=== PATIENT | female | born 1985 | race Caucasian/White ===

== ENCOUNTER 2021-11-22 19:17 | Observation (INO) ==
[2021-11-22 20:20] LABS: Bilirubin,Urine Negative (Negative); Blood,Urine Negative (Negative); Clarity,Urine Clear (Clear); Glucose,Urine (UA) >=1000 mg/dL (Normal); Ketones,Urine Negative (Negative); Leukocyte Esterase,Urine Negative (Negative); Nitrite,Urine Negative (Negative); PH,Urine 6.5 pH Units (5.0-8.0); Protein,Urine Negative (Neg-Trace); Specific Gravity,Urine 1.015 (1.010-1.025); Urobilinogen,Urine Normal (Normal)
[2021-11-22 20:22] LABS: Color,Urine Colorless (Yellow)
[2021-11-22 20:28] LABS: RBC,Urine 0-3 per hpf (0-3); WBC,Urine 0-3 per hpf (0-3)
[2021-11-22 20:29] LABS: Squamous Epithelial Cell,Urine Few per hpf (None-Few)
[2021-11-22 20:30] LABS: VBG HCO3 23 mEq/L (21-27); VBG PCO2 39 mmHg (41-51); VBG PH 7.37 pH Units (7.32-7.42); VBG PO2 68 mmHg (25-50)
[2021-11-22] MEDS ORDERED: Insulin Regular, Human 100 UNIT/ML SUBQ ONE (20:52)
[2021-11-22] MEDS ORDERED: 0.9 % Sodium Chloride 1,000 ML IVC ONE (20:52)
[2021-11-22 20:53] LABS: Alanine Aminotransferase 203 Units/L (7-52); Albumin 3.4 g/dL (3.5-5.7); Albumin/Globulin Ratio 1.1 (1.1-2.2); Alkaline Phosphatase 266 Units/L (34-104); Aspartate Amino Transferase 95 Units/L (13-39); BUN/Creatinine Ratio 14 (6-26); Bilirubin,Total 0.3 mg/dL (0.3-1.0); Blood Urea Nitrogen 14 mg/dL (6-20); Calcium 8.5 mg/dL (8.6-10.3); Carbon Dioxide 22 mEq/L (23-29); Chloride 92 mEq/L (98-107); Globulin 3.1 g/dL (2.4-3.5); Potassium 4.3 mEq/L (3.5-5.1); Sodium 124 mEq/L (136-145); Total Protein 6.5 g/dL (6.4-8.9); eGFR For African Americans > 60 (> 60); eGFR For Non-African Americans > 60 (> 60)
[2021-11-22 20:57] LABS: Glucose 858 mg/dL (70-105); Osmolality,Calculated 301 (280-300)
[2021-11-22 21:15] LABS: Basophils % 0.2 %; Hematocrit 39.4 % (35.3-44.9); Hemoglobin 12.5 g/dL (11.5-15.4); Immature Granulocytes % 0.7 % (0-4); Lymphocytes # 5.1 K/mcL (0.6-4.6); Mean Corpuscular HGB Conc 31.7 g/dL (31.6-35.5); Mean Corpuscular Hemoglobin 28.6 pg (28.0-33.3); Mean Corpuscular Volume 90.2 fL (83.0-100.0); Mean Platelet Volume 11.1 fL (9.4-12.4); Monocytes # 1.4 K/mcL (0.0-1.3); Monocytes % 6.6 %; Neutrophils # 14.5 K/mcL (1.6-8.9); Platelet Count 172 K/mcL (140-400); Red Blood Count 4.37 M/mcL (3.82-4.97); Red Cell Distribution Width 13.8 % (11.5-14.5); Segmented Neutrophils % 68.5 %
[2021-11-22 21:16] LABS: White Blood Count 21.2 K/mcL (4.3-11.1)
[2021-11-22] MEDS ORDERED: Ondansetron 4 MG/2 ML VIAL IVP ONE (21:26)
[2021-11-22] MEDS ORDERED: Insulin Human Regular 10 UNIT in 0.9 % Sodium Chloride 10 ML IV ONE (21:30)
[2021-11-22] MEDS ORDERED: Piperacillin/Tazobactam 3.375 GM in 0.9 % Sodium Chloride Mini Bag 100 ML IVPB ONE (22:45)
[2021-11-22] MEDS ORDERED: Ketorolac 30 MG/ML VIAL IVP ONE (23:07)
[2021-11-22] MEDS ORDERED: Insulin DETEMIR 100 UNIT/ML per UNIT SUBQ ONE (23:45)
[2021-11-22] MEDS ORDERED: D5% in Water 1,000 ML IVC PRN (23:55)
[2021-11-22] MEDS ORDERED: Dextrose 4 GM Chewable Tablets PO PRN ×2 (23:55)
[2021-11-22] MEDS ORDERED: *HR* Dextrose 50 % in Water (Syg) 50 ML SYRINGE IVP PRN (23:55)
[2021-11-23] MEDS ORDERED: 0.9 % Sodium Chloride 1,000 ML IVC SCH (00:15)
[2021-11-23] MEDS ORDERED: Naloxone 0.4 MG/ML INJ IVP PRN ×2 (00:16→02:15)
[2021-11-23] MEDS ORDERED: Dextrose 4 GM Chewable Tablets PO PRN ×2 (02:15)
[2021-11-23] MEDS ORDERED: Acetaminophen 325 MG TABLET PO PRN (02:15)
[2021-11-23] MEDS ORDERED: D5% in Water 1,000 ML IVC PRN (02:15)
[2021-11-23] MEDS ORDERED: Ibuprofen 800 MG TABLET PO PRN (02:15)
[2021-11-23] MEDS ORDERED: *HR* Dextrose 50 % in Water (Syg) 50 ML SYRINGE IVP PRN (02:15)
[2021-11-23] MEDS ORDERED: Loratadine 10 MG TABLET PO PRN (02:22)
[2021-11-23] MEDS ORDERED: Ondansetron ODT 4 MG TAB.RAPDIS PO PRN (02:24)
[2021-11-23] MEDS ORDERED: hydrOXYzine pamoate 25 MG CAPSULE PO PRN (02:24)
[2021-11-23] MEDS: 0.9 % Sodium Chloride 1,000 ML IVC SCH (06:30)
[2021-11-23] MEDS ORDERED: Insulin LISPRO 300 UNITS/3 ML VIAL SUBQ SCH ×5 (07:30→21:00)
[2021-11-23 07:31] LABS: Basophils # 0.1 K/mcL (0.0-0.2); Basophils % 0.5 %; Eosinophils # 0.2 K/mcL (0.0-0.6); Eosinophils % 0.7 %; Hematocrit 37.6 % (35.3-44.9); Hemoglobin 12.4 g/dL (11.5-15.4); Immature Granulocytes % 0.4 % (0-4); Lymphocytes % 38.9 %; Mean Corpuscular Hemoglobin 28.7 pg (28.0-33.3); Mean Platelet Volume 9.4 fL (9.4-12.4); Monocytes # 1.8 K/mcL (0.0-1.3); Monocytes % 7.9 %; Neutrophils # 11.5 K/mcL (1.6-8.9); Platelet Count 360 K/mcL (140-400); Red Blood Count 4.32 M/mcL (3.82-4.97); Red Cell Distribution Width 13.3 % (11.5-14.5); Segmented Neutrophils % 51.6 %; White Blood Count 22.2 K/mcL (4.3-11.1)
[2021-11-23 07:32] LABS: Lymphocytes # 8.6 K/mcL (0.6-4.6)
[2021-11-23 07:50] LABS: Alanine Aminotransferase 187 Units/L (7-52); Albumin/Globulin Ratio 1.1 (1.1-2.2); Alkaline Phosphatase 132 Units/L (34-104); Aspartate Amino Transferase 134 Units/L (13-39); BUN/Creatinine Ratio 24 (6-26); Bilirubin,Total 0.3 mg/dL (0.3-1.0); Blood Urea Nitrogen 16 mg/dL (6-20); Calcium 7.9 mg/dL (8.6-10.3); Carbon Dioxide 29 mEq/L (23-29); Chloride 105 mEq/L (98-107); Globulin 2.8 g/dL (2.4-3.5); Glucose 140 mg/dL (70-105); Osmolality,Calculated 289 (280-300); Sodium 138 mEq/L (136-145); Total Protein 5.8 g/dL (6.4-8.9); eGFR For African Americans > 60 (> 60); eGFR For Non-African Americans > 60 (> 60)
[2021-11-23 08:17] LABS: Platelet Estimate Normal (Normal); Reactive Lymphocytes Present (Not Present)
[2021-11-23] MEDS: Budesonide/Formoterol 80/4.5 1 PUFF INH IH SCH ×2 (09:39→21:40)
[2021-11-23] MEDS: Piperacillin/Tazobactam 3.375 GM in 0.9 % Sodium Chloride Mini Bag 100 ML IVPB SCH ×2 (10:17→17:23)
[2021-11-23] MEDS: tiZANidine 4 MG TABLET PO SCH ×3 (10:19→19:48)
[2021-11-23] MEDS: Gabapentin 300 MG CAPSULE PO SCH ×3 (10:20→19:48)
[2021-11-23] MEDS: FLUoxetine 20 MG CAPSULE PO SCH (10:20)
[2021-11-23] MEDS: Fluticasone Propionate Nasal 50 MCG/SPRAY BOTTLE NS SCH (10:22)
[2021-11-23] MEDS: Insulin LISPRO 300 UNITS/3 ML VIAL SUBQ SCH ×2 (12:12→17:20)
[2021-11-23] MEDS: Insulin DETEMIR 100 UNIT/ML X5UNITS SUBQ SCH ×2 (12:12→19:48)
[2021-11-23] MEDS: Ketorolac 30 MG/ML VIAL IVP PRN (17:46)
[2021-11-23] MEDS ORDERED: Insulin DETEMIR 100 UNIT/ML X5UNITS SUBQ SCH ×2 (21:00)
[2021-11-23] MEDS ORDERED: hydrOXYzine pamoate 25 MG CAPSULE PO SCH (21:00)
[2021-11-24] MEDS: Piperacillin/Tazobactam 3.375 GM in 0.9 % Sodium Chloride Mini Bag 100 ML IVPB SCH ×2 (01:31→07:59)
[2021-11-24] MEDS: Ketorolac 30 MG/ML VIAL IVP PRN ×2 (02:38→12:15)
[2021-11-24] MEDS ORDERED: *HR* Enoxaparin 40 MG/0.4 ML SYRINGE SQ SCH (06:00)
[2021-11-24] MEDS: Insulin LISPRO 300 UNITS/3 ML VIAL SUBQ SCH ×2 (07:28→11:28)
[2021-11-24] MEDS: Gabapentin 300 MG CAPSULE PO SCH ×2 (07:59→15:23)
[2021-11-24] MEDS: FLUoxetine 20 MG CAPSULE PO SCH (08:00)
[2021-11-24] MEDS: Fluticasone Propionate Nasal 50 MCG/SPRAY BOTTLE NS SCH (08:00)
[2021-11-24] MEDS: tiZANidine 4 MG TABLET PO SCH ×2 (08:00→15:23)
[2021-11-24] MEDS: Insulin DETEMIR 100 UNIT/ML X5UNITS SUBQ SCH (08:30)
[2021-11-24] MEDS: Budesonide/Formoterol 80/4.5 1 PUFF INH IH SCH (09:51)
[2021-11-24] MEDS: 0.9 % Sodium Chloride 1,000 ML IVC SCH (11:06)
[2021-11-24 13:32] LABS: Hematocrit 39.4 % (35.3-44.9); Hemoglobin 12.8 g/dL (11.5-15.4); Mean Corpuscular HGB Conc 32.5 g/dL (31.6-35.5); Mean Corpuscular Hemoglobin 29.2 pg (28.0-33.3); Mean Platelet Volume 9.9 fL (9.4-12.4); Platelet Count 378 K/mcL (140-400); Red Blood Count 4.38 M/mcL (3.82-4.97); Red Cell Distribution Width 13.9 % (11.5-14.5); White Blood Count 15.1 K/mcL (4.3-11.1)
[2021-11-24 13:47] LABS: Alanine Aminotransferase 215 Units/L (7-52); Albumin 2.9 g/dL (3.5-5.7); Albumin/Globulin Ratio 1.1 (1.1-2.2); Alkaline Phosphatase 130 Units/L (34-104); Aspartate Amino Transferase 227 Units/L (13-39); BUN/Creatinine Ratio 20 (6-26); Bilirubin,Total 0.2 mg/dL (0.3-1.0); Blood Urea Nitrogen 18 mg/dL (6-20); Calcium 8.4 mg/dL (8.6-10.3); Carbon Dioxide 28 mEq/L (23-29); Chloride 102 mEq/L (98-107); Globulin 2.7 g/dL (2.4-3.5); Glucose 260 mg/dL (70-105); Osmolality,Calculated 291 (280-300); Sodium 135 mEq/L (136-145); Total Protein 5.6 g/dL (6.4-8.9); eGFR For African Americans > 60 (> 60); eGFR For Non-African Americans > 60 (> 60)
[2021-11-24 14:42] VITALS: BP 114/74; PULSE 63; RESP 16; TEMP 98.2; O2SAT 97
== END 2021-11-24 16:24 | disposition home or self-care (01) ==
LOC: EMEROOPIK 19:17 → INPPIK 19:17 → SUATTDRO 11-23 00:27 → INPPIK 11-23 00:38
PROVIDERS: ADMIT Internal Medicine; ATTEND Family Medicine

== ENCOUNTER 2021-12-16 19:01 | Inpatient (IN) ==
[2021-12-16] MEDS ORDERED: hydrOXYzine pamoate 25 MG CAPSULE PO STA (21:00)
[2021-12-16 21:10] LABS: Basophils # 0.1 K/mcL (0.0-0.2); Basophils % 0.2 %; Hematocrit 38.2 % (35.3-44.9); Hemoglobin 12.4 g/dL (11.5-15.4); Immature Granulocytes % 1.3 % (0-4); Lymphocytes # 3.9 K/mcL (0.6-4.6); Lymphocytes % 12.8 %; Mean Corpuscular HGB Conc 32.5 g/dL (31.6-35.5); Mean Corpuscular Hemoglobin 28.6 pg (28.0-33.3); Mean Corpuscular Volume 88.2 fL (83.0-100.0); Mean Platelet Volume 9.8 fL (9.4-12.4); Monocytes # 1.6 K/mcL (0.0-1.3); Monocytes % 5.2 %; Neutrophils # 24.8 K/mcL (1.6-8.9); Nucleated Red Blood Cells 0.1 /100 WBC (0); Platelet Count 448 K/mcL (140-400); Red Blood Count 4.33 M/mcL (3.82-4.97); Red Cell Distribution Width 14.1 % (11.5-14.5); Segmented Neutrophils % 80.5 %
[2021-12-16 21:22] LABS: White Blood Count 30.8 K/mcL (4.3-11.1)
[2021-12-16 21:31] LABS: BUN/Creatinine Ratio 21 (6-26); Blood Urea Nitrogen 15 mg/dL (6-20); Calcium 8.6 mg/dL (8.6-10.3); Carbon Dioxide 26 mEq/L (23-29); Chloride 103 mEq/L (98-107); Glucose 289 mg/dL (70-105); Osmolality,Calculated 293 (280-300); Potassium 3.9 mEq/L (3.5-5.1); Sodium 136 mEq/L (136-145); eGFR For African Americans > 60 (> 60); eGFR For Non-African Americans > 60 (> 60)
[2021-12-16 21:35] LABS: Troponin I < 0.03 ng/mL (< 0.04)
[2021-12-16 21:46] LABS: Platelet Estimate Increased (Normal)
[2021-12-16] MEDS ORDERED: levoFLOXacin 750 MG/150 ML 750 MG/150 ML BAG IVPB ONE (21:59)
[2021-12-16] MEDS ORDERED: Furosemide 40 MG in 0.9 % Sodium Chloride 50 ML IV STA (21:59)
[2021-12-16] MEDS ORDERED: Furosemide 40 MG/4 ML VIAL IVP ONE (22:30)
[2021-12-17] MEDS ORDERED: Dextrose 4 GM Chewable Tablets PO PRN ×2 (04:33)
[2021-12-17] MEDS ORDERED: D5% in Water 1,000 ML IVC PRN (04:33)
[2021-12-17] MEDS ORDERED: *HR* Dextrose 50 % in Water (Syg) 50 ML SYRINGE IVP PRN (04:33)
[2021-12-17] MEDS: Piperacillin/Tazobactam 3.375 GM in 0.9 % Sodium Chloride Mini Bag 100 ML IVPB SCH ×2 (07:53→16:47)
[2021-12-17] MEDS: Insulin LISPRO 300 UNITS/3 ML VIAL SUBQ SCH ×3 (07:54→16:48)
[2021-12-17 08:03] LABS: Basophils # 0.1 K/mcL (0.0-0.2); Basophils % 0.3 %; Hematocrit 38.8 % (35.3-44.9); Hemoglobin 12.7 g/dL (11.5-15.4); Lymphocytes # 7.1 K/mcL (0.6-4.6); Lymphocytes % 25.4 %; Mean Corpuscular HGB Conc 32.7 g/dL (31.6-35.5); Mean Corpuscular Hemoglobin 28.7 pg (28.0-33.3); Mean Corpuscular Volume 87.8 fL (83.0-100.0); Mean Platelet Volume 9.7 fL (9.4-12.4); Monocytes % 3.5 %; Neutrophils # 19.5 K/mcL (1.6-8.9); Nucleated Red Blood Cells 0.1 /100 WBC (0); Platelet Count 432 K/mcL (140-400); Red Blood Count 4.42 M/mcL (3.82-4.97); Red Cell Distribution Width 14.2 % (11.5-14.5); Segmented Neutrophils % 69.8 %
[2021-12-17] MEDS: Insulin DETEMIR 100 UNIT/ML X5UNITS SUBQ SCH (08:50)
[2021-12-17 08:55] LABS: INR 1.3; Prothrombin Time 14.6 Seconds (9.4-12.1)
[2021-12-17 08:57] LABS: Activated Partial Thrombo Time 28.2 Seconds (26.0-36.0)
[2021-12-17 09:04] LABS: Alanine Aminotransferase 81 Units/L (7-52); Alkaline Phosphatase 144 Units/L (34-104); Aspartate Amino Transferase 30 Units/L (13-39); BUN/Creatinine Ratio 22 (6-26); Bilirubin,Total 0.3 mg/dL (0.3-1.0); Blood Urea Nitrogen 15 mg/dL (6-20); Calcium 8.1 mg/dL (8.6-10.3); Carbon Dioxide 27 mEq/L (23-29); Chloride 103 mEq/L (98-107); Globulin 3.1 g/dL (2.4-3.5); Glucose 239 mg/dL (70-105); Magnesium 1.4 mg/dL (1.6-2.6); Osmolality,Calculated 295 (280-300); Phosphorous 2.3 mg/dL (2.7-4.5); Potassium 3.4 mEq/L (3.5-5.1); Sodium 138 mEq/L (136-145); Total Protein 6.1 g/dL (6.4-8.9); eGFR For African Americans > 60 (> 60); eGFR For Non-African Americans > 60 (> 60)
[2021-12-17] MEDS: Ipratropium/Albuterol Neb 3 ML IH SCH ×3 (09:28→22:26)
[2021-12-17] MEDS ORDERED: Budesonide/Formoterol 160/4.5 1 PUFF INH IH SCH (10:00)
[2021-12-17 10:01] LABS: Platelet Estimate Normal (Normal); Reactive Lymphocytes Present (Not Present); Smudge Cells Present (Not Present)
[2021-12-17] MEDS ORDERED: Ondansetron ODT 4 MG TAB.RAPDIS SL PRN (10:20)
[2021-12-17] MEDS ORDERED: Loratadine 10 MG TABLET PO PRN (10:20)
[2021-12-17] MEDS: Gabapentin 300 MG CAPSULE PO SCH ×3 (10:55→20:08)
[2021-12-17] MEDS: 0.9 % Sodium Chloride 1,000 ML IVC SCH ×2 (10:55→20:09)
[2021-12-17] MEDS: hydrOXYzine pamoate 25 MG CAPSULE PO PRN (10:56)
[2021-12-17] MEDS: BuPROPion SR (12 HR) 150 MG TABLET PO SCH ×2 (10:56→20:09)
[2021-12-17] MEDS: FLUoxetine 20 MG CAPSULE PO SCH (11:04)
[2021-12-17] MEDS: tiZANidine 4 MG TABLET PO SCH ×2 (11:04→20:07)
[2021-12-17 13:24] LABS: Estimated Average Glucose 258 mg/dl; Hemoglobin A1C 10.6 %
[2021-12-17] MEDS: *HR* LORazepam 0.5 MG TABLET PO PRN ×2 (14:51→23:21)
[2021-12-17] MEDS: Acetaminophen 325 MG TABLET PO PRN (20:07)
[2021-12-17] MEDS ORDERED: Budesonide/Formoterol 80/4.5 1 PUFF INH IH SCH (22:00)
[2021-12-17] MEDS: Budesonide/Formoterol 160/4.5 1 PUFF INH IH SCH (22:26)
[2021-12-18] MEDS: Benzonatate 100 MG CAPSULE PO PRN (00:19)
[2021-12-18] MEDS: Piperacillin/Tazobactam 3.375 GM in 0.9 % Sodium Chloride Mini Bag 100 ML IVPB SCH ×3 (00:21→17:30)
[2021-12-18] MEDS: 0.9 % Sodium Chloride 1,000 ML IVC SCH ×3 (04:13→18:40)
[2021-12-18] MEDS: Ipratropium/Albuterol Neb 3 ML IH SCH ×4 (04:16→21:39)
[2021-12-18 04:46] LABS: Basophils # 0.1 K/mcL (0.0-0.2); Basophils % 0.3 %; Hematocrit 38.5 % (35.3-44.9); Hemoglobin 12.5 g/dL (11.5-15.4); Immature Granulocytes % 1.2 % (0-4); Lymphocytes # 5.9 K/mcL (0.6-4.6); Lymphocytes % 23.9 %; Mean Corpuscular HGB Conc 32.5 g/dL (31.6-35.5); Mean Corpuscular Hemoglobin 28.8 pg (28.0-33.3); Mean Corpuscular Volume 88.7 fL (83.0-100.0); Mean Platelet Volume 9.8 fL (9.4-12.4); Monocytes # 0.9 K/mcL (0.0-1.3); Monocytes % 3.5 %; Neutrophils # 17.4 K/mcL (1.6-8.9); Nucleated Red Blood Cells 0.2 /100 WBC (0); Platelet Count 439 K/mcL (140-400); Red Blood Count 4.34 M/mcL (3.82-4.97); Red Cell Distribution Width 14.5 % (11.5-14.5); Segmented Neutrophils % 70.1 %; White Blood Count 24.8 K/mcL (4.3-11.1)
[2021-12-18 04:47] LABS: Eosinophils # 0.3 K/mcL (0.0-0.6)
[2021-12-18] MEDS ORDERED: HYDROcodone BIT/Homatropine LQ 5 MG/5 ML UDC PO ONE (04:53)
[2021-12-18] MEDS: *HR* Enoxaparin 40 MG/0.4 ML SYRINGE SQ SCH (05:11)
[2021-12-18 06:09] LABS: BUN/Creatinine Ratio 19 (6-26); Blood Urea Nitrogen 11 mg/dL (6-20); Calcium 7.4 mg/dL (8.6-10.3); Carbon Dioxide 23 mEq/L (23-29); Chloride 107 mEq/L (98-107); Glucose 204 mg/dL (70-105); Osmolality,Calculated 289 (280-300); Potassium 3.7 mEq/L (3.5-5.1); Sodium 137 mEq/L (136-145); eGFR For African Americans > 60 (> 60); eGFR For Non-African Americans > 60 (> 60)
[2021-12-18] MEDS: tiZANidine 4 MG TABLET PO SCH ×2 (07:55→21:55)
[2021-12-18] MEDS: Gabapentin 300 MG CAPSULE PO SCH ×3 (07:55→21:55)
[2021-12-18] MEDS: BuPROPion SR (12 HR) 150 MG TABLET PO SCH ×2 (07:55→21:55)
[2021-12-18] MEDS: FLUoxetine 20 MG CAPSULE PO SCH (07:55)
[2021-12-18] MEDS: Insulin LISPRO 300 UNITS/3 ML VIAL SUBQ SCH ×3 (07:56→16:28)
[2021-12-18] MEDS: Budesonide/Formoterol 160/4.5 1 PUFF INH IH SCH ×2 (09:37→21:39)
[2021-12-18] MEDS: Insulin DETEMIR 100 UNIT/ML X5UNITS SUBQ SCH (09:59)
[2021-12-18] MEDS: Fluticasone Propionate Nasal 50 MCG/SPRAY BOTTLE NS SCH (09:59)
[2021-12-18] MEDS: *HR* LORazepam 0.5 MG TABLET PO PRN ×2 (10:47→17:45)
[2021-12-18] MEDS: Nicotine 21 MG PATCH.TD24 TD SCH (11:54)
[2021-12-18] MEDS: GuaiFENesin/Codeine Oral Soln 5 ML UDC PO PRN ×2 (15:43→21:55)
[2021-12-19] MEDS: Piperacillin/Tazobactam 3.375 GM in 0.9 % Sodium Chloride Mini Bag 100 ML IVPB SCH ×3 (01:31→16:36)
[2021-12-19] MEDS: 0.9 % Sodium Chloride 1,000 ML IVC SCH ×3 (01:52→21:31)
[2021-12-19] MEDS: *HR* LORazepam 0.5 MG TABLET PO PRN ×4 (01:52→20:46)
[2021-12-19] MEDS: Ipratropium/Albuterol Neb 3 ML IH SCH ×4 (03:50→21:42)
[2021-12-19] MEDS: GuaiFENesin/Codeine Oral Soln 5 ML UDC PO PRN ×3 (04:09→18:41)
[2021-12-19] MEDS: Acetaminophen 325 MG TABLET PO PRN (04:12)
[2021-12-19] MEDS: *HR* Enoxaparin 40 MG/0.4 ML SYRINGE SQ SCH (05:51)
[2021-12-19] MEDS ORDERED: MethylPREDNISolone 40 MG/ML VIAL IVP SCH (06:00)
[2021-12-19 07:50] LABS: Basophils # 0.1 K/mcL (0.0-0.2); Basophils % 0.5 %; Eosinophils # 0.3 K/mcL (0.0-0.6); Eosinophils % 1.9 %; Hematocrit 39.5 % (35.3-44.9); Hemoglobin 12.7 g/dL (11.5-15.4); Immature Granulocytes % 1.4 % (0-4); Lymphocytes # 3.7 K/mcL (0.6-4.6); Lymphocytes % 21.7 %; Mean Corpuscular HGB Conc 32.2 g/dL (31.6-35.5); Mean Corpuscular Hemoglobin 28.8 pg (28.0-33.3); Mean Corpuscular Volume 89.6 fL (83.0-100.0); Mean Platelet Volume 9.4 fL (9.4-12.4); Monocytes # 0.7 K/mcL (0.0-1.3); Monocytes % 4.2 %; Nucleated Red Blood Cells 0.3 /100 WBC (0); Platelet Count 441 K/mcL (140-400); Red Blood Count 4.41 M/mcL (3.82-4.97); Red Cell Distribution Width 14.7 % (11.5-14.5); Segmented Neutrophils % 70.3 %; White Blood Count 17.1 K/mcL (4.3-11.1)
[2021-12-19] MEDS: FLUoxetine 20 MG CAPSULE PO SCH (08:12)
[2021-12-19] MEDS: Benzonatate 100 MG CAPSULE PO PRN (08:12)
[2021-12-19] MEDS: tiZANidine 4 MG TABLET PO SCH ×2 (08:12→20:46)
[2021-12-19] MEDS: BuPROPion SR (12 HR) 150 MG TABLET PO SCH ×2 (08:13→20:46)
[2021-12-19] MEDS: Gabapentin 300 MG CAPSULE PO SCH ×3 (08:13→20:46)
[2021-12-19] MEDS: Fluticasone Propionate Nasal 50 MCG/SPRAY BOTTLE NS SCH (08:14)
[2021-12-19] MEDS: Nicotine 21 MG PATCH.TD24 TD SCH (08:14)
[2021-12-19] MEDS: Insulin LISPRO 300 UNITS/3 ML VIAL SUBQ SCH ×3 (08:14→16:35)
[2021-12-19 08:48] LABS: BUN/Creatinine Ratio 12 (6-26); Blood Urea Nitrogen 7 mg/dL (6-20); Calcium 7.6 mg/dL (8.6-10.3); Carbon Dioxide 24 mEq/L (23-29); Chloride 108 mEq/L (98-107); Glucose 147 mg/dL (70-105); Osmolality,Calculated 289 (280-300); Potassium 4.1 mEq/L (3.5-5.1); Sodium 139 mEq/L (136-145); eGFR For African Americans > 60 (> 60); eGFR For Non-African Americans > 60 (> 60)
[2021-12-19] MEDS: Insulin DETEMIR 100 UNIT/ML X5UNITS SUBQ SCH (09:25)
[2021-12-19] MEDS: Budesonide/Formoterol 160/4.5 1 PUFF INH IH SCH ×2 (09:51→21:41)
[2021-12-19] MEDS: MethylPREDNISolone 40 MG/ML VIAL IVP SCH ×2 (13:48→21:30)
[2021-12-19] MEDS: Ketorolac 30 MG/ML VIAL IVP SCH ×2 (13:49→21:28)
[2021-12-20] MEDS: Piperacillin/Tazobactam 3.375 GM in 0.9 % Sodium Chloride Mini Bag 100 ML IVPB SCH ×2 (00:47→08:33)
[2021-12-20] MEDS: GuaiFENesin/Codeine Oral Soln 5 ML UDC PO PRN ×2 (00:55→08:30)
[2021-12-20] MEDS: Ipratropium/Albuterol Neb 3 ML IH SCH (04:26)
[2021-12-20] MEDS: Ketorolac 30 MG/ML VIAL IVP SCH (04:43)
[2021-12-20] MEDS: *HR* LORazepam 0.5 MG TABLET PO PRN (04:43)
[2021-12-20] MEDS: MethylPREDNISolone 40 MG/ML VIAL IVP SCH (04:44)
[2021-12-20] MEDS: *HR* Enoxaparin 40 MG/0.4 ML SYRINGE SQ SCH (04:45)
[2021-12-20 07:25] VITALS: BP 147/90; PULSE 73; RESP 16; TEMP 98.8
[2021-12-20 08:25] LABS: Hematocrit 40.3 % (35.3-44.9); Hemoglobin 13.3 g/dL (11.5-15.4); Mean Corpuscular Hemoglobin 29.1 pg (28.0-33.3); Mean Corpuscular Volume 88.2 fL (83.0-100.0); Mean Platelet Volume 9.4 fL (9.4-12.4); Platelet Count 491 K/mcL (140-400); Red Blood Count 4.57 M/mcL (3.82-4.97); Red Cell Distribution Width 14.5 % (11.5-14.5)
[2021-12-20] MEDS: Insulin LISPRO 300 UNITS/3 ML VIAL SUBQ SCH (08:28)
[2021-12-20 08:29] LABS: White Blood Count 32.5 K/mcL (4.3-11.1)
[2021-12-20 08:30] VITALS: O2SAT 96
[2021-12-20] MEDS: hydrOXYzine pamoate 25 MG CAPSULE PO PRN (08:30)
[2021-12-20] MEDS: Gabapentin 300 MG CAPSULE PO SCH (08:30)
[2021-12-20] MEDS: FLUoxetine 20 MG CAPSULE PO SCH (08:30)
[2021-12-20] MEDS: Nicotine 21 MG PATCH.TD24 TD SCH (08:31)
[2021-12-20] MEDS: Benzonatate 100 MG CAPSULE PO PRN (08:31)
[2021-12-20] MEDS: tiZANidine 4 MG TABLET PO SCH (08:31)
[2021-12-20] MEDS: Fluticasone Propionate Nasal 50 MCG/SPRAY BOTTLE NS SCH (08:32)
[2021-12-20] MEDS: BuPROPion SR (12 HR) 150 MG TABLET PO SCH (08:32)
[2021-12-20 08:41] LABS: BUN/Creatinine Ratio 21 (6-26); Blood Urea Nitrogen 12 mg/dL (6-20); Calcium 8.1 mg/dL (8.6-10.3); Carbon Dioxide 23 mEq/L (23-29); Chloride 104 mEq/L (98-107); Glucose 357 mg/dL (70-105); Osmolality,Calculated 290 (280-300); Potassium 4.3 mEq/L (3.5-5.1); Sodium 133 mEq/L (136-145); eGFR For African Americans > 60 (> 60); eGFR For Non-African Americans > 60 (> 60)
[2021-12-20 08:51] LABS: Mycoplasma pneumoniae IgG 0.07 U/L (<=0.09)
== END 2021-12-20 09:08 | disposition home or self-care (01) | DRG 720 ==
LOC: SUPCPDRO → INPPIK 19:01 → EMEROOPIK 19:01 → INPPIK 23:26
PROVIDERS: ADMIT Internal Medicine; ATTEND Family Medicine